=== PATIENT | female | born 1995 | race Caucasian/White ===

== ENCOUNTER → 2018-08-25 15:18 | Outpatient (CLI) | payer OTHER, SELFPAY ==
[2018-08-28 14:19] LABS: HPV Reflexed? NOT INDICATED
== END ==
PROVIDERS: Referring Provider Obstetrics & Gynecology; Visit Provider Obstetrics & Gynecology
DX: Z12.72 Encounter for screening for malignant neoplasm of vagina (principal)
CPT/HCPCS: 88175; G0145

== ENCOUNTER → 2020-03-30 | Outpatient (CLI) | payer OTHER, SELFPAY ==
[2017-03-02 06:48] VITALS: BMI 32.2
[2020-04-07 00:31] LABS: HPV Reflexed? NOT INDICATED
== END | disposition home or self-care (01) ==
PROVIDERS: Referring Provider Obstetrics & Gynecology; Visit Provider Obstetrics & Gynecology
DX: Z12.4 Encounter for screening for malignant neoplasm of cervix (principal)
CPT/HCPCS: 88175; G0145

== ENCOUNTER → 2021-03-26 07:20 | Outpatient (CLI) | payer OTHER, SELFPAY ==
[2021-03-26 10:33] LABS: Hepatitis B Surface Antibody Non-Reactive; Rubella IgG Reactive (Nonreactive)
[2021-03-26 10:49] LABS: ALB/GLOB Ratio 1.2 RATIO (0.9-2.4); AST(SGOT) 14 U/L (15-37); Alanine Aminotransfer ALT/SGPT 22 U/L (13-56); Albumin, Serum 4.3 g/dL (3.2-5.0); Alkaline Phosphatase 94 U/L (45-117); Anion Gap 5 (5-15); BUN 13 mg/dL (7-18); BUN/Creat Ratio 11.2 RATIO (10-20); Calcium,Total 9.5 mg/dL (8.5-10.1); Chloride 104 mmol/L (98-107); Cholesterol 143 mg/dL (200); Creatinine, Serum 1.16 mg/dL (0.55-1.02); EST Glomerular Filtration Rate 59 mL/min (>60); Est Glom Filt Rate - Afr Amer 72 mL/min (>60); Globulin 3.6 g/dL (2.2-4.2); Glucose 79 mg/dL (74-106); High Density Lipoprotein 70 mg/dL; Potassium 4.1 mmol/L (3.5-5.1); Protein, Total 7.9 g/dL (6.4-8.2); Sodium Level 136 mmol/L (136-145); Triglycerides 85 mg/dL; Very Low Density Lipoprotein 17 mg/dL (5-40)
[2021-03-28 12:41] LABS: Mumps Antibody, IgM < 0.80 AU (0.00-0.79); Rubeola IgG Ab > 300.0 AU/mL (Immune >16.4); V-Zoster IgG (Immunity) 2773 index (Immune >165)
== END ==
PROVIDERS: PCP Family Medicine; Referring Provider Family Medicine; Visit Provider Family Medicine
DX: Z00.00 Encounter for general adult medical examination without abnormal findings (principal); E66.3 Overweight
CPT/HCPCS: 36415; 80053; 80061; 86706; 86735; 86762; 86765; 86787

== ENCOUNTER 2023-10-12 12:06 | Emergency (ER) | payer OTHER, SELFPAY ==
[2023-10-12 12:07] VITALS: BP 160/95; PULSE 93; RESP 16; TEMP 36.4; O2SAT 99; BMI 30.9
--- NOTE | 2023-10-12 12:11 | EKG12_ITS ---
Test Reason : PALPATATIONS Blood Pressure : / mmHG Vent. Rate : 092 BPM Atrial Rate : 092 BPM P-R Int : 146 ms QRS Dur : 068 ms QT Int : 346 ms P-R-T Axes : 052 038 045 degrees QTc Int : 427 ms Normal sinus rhythm Normal ECG Confirmed by HARSH VALENCIA, YISSEL ([id number]), primer expeditor and drier COTY REECE ([id number]) on 10/13/2023 12:13:52 PM Referred By: Confirmed By:YISSEL HOUSE MD
[2023-10-12 12:43] LABS: Absolute Lymphocyte Count 1.37 X10^3/uL (0.83-4.51); Absolute Neutrophil Count 3.7 X10^3/uL (2.0-7.7); Basophil# 0.07 X10^3/uL; Basophil% 1.2 % (0-1); Eosinophil# 0.32 X10^3/uL; Eosinophils% 5.6 % (0-5); Hematocrit 44.3 % (37-47); Hemoglobin 14.9 g/dL (12.0-15.0); Lymphocyte # 1.37 X10^3/ul (0.83-4.51); Lymphocyte % 23.8 % (19-41); Mean Corp Hgb Conc 33.6 g/dL (32-36); Mean Corpuscular Hgb 30.3 pg (27.0-32.0); Mean Platelet Vol. 9.2 fl (6.2-12.0); Monocyte# 0.28 X10^3/uL; Monocyte% 4.9 % (0-10); NRBC Flagged by Analyzer 0 % (0-5); Neutrophil % 64.3 % (47-70); Platelet Count 342 K/mm3 (150-450); RBC Distribution Width CV 11.9 % (11.6-14.6); RBC Distribution Width SD 39.2 fl (35.1-43.9); Red Blood Count 4.92 M/mm3 (4.2-5.4); White Blood Count 5.8 K/mm3 (4.4-11.0)
[2023-10-12 12:52] VITALS: BP 145/96; PULSE 84; RESP 14; O2SAT 100; O2SAT 99
[2023-10-12 12:56] LABS: Anion Gap 6 (5-15); BUN 14 mg/dL (7-18); BUN/Creat Ratio 12.3 RATIO (10-20); Calcium,Total 9.4 mg/dL (8.5-10.1); Chloride 105 mmol/L (98-107); Creatinine, Serum 1.14 mg/dL (0.55-1.02); EST Glomerular Filtration Rate 59 mL/min (>60); Est Glom Filt Rate - Afr Amer 72 mL/min (>60); Estimated Creatinine Clearance 67.55 ml/min; Glucose 99 mg/dL (74-106); Potassium 3.9 mmol/L (3.5-5.1); Sodium Level 140 mmol/L (136-145); Troponin-I HS (w/2H Reflex) 4 pg/mL (3.0-54.0)
--- NOTE | 2023-10-12 13:00 | RAD_ITS ---
HISTORY: chest pain. TECHNIQUE: XR Chest 1 View. COMPARISON: None. FINDINGS: CARDIOMEDIASTINAL BORDERS: Cardiac silhouette within normal limits in size. Mediastinal contour unremarkable. LUNGS: Radiographically clear. PLEURA: No pleural effusion or pneumothorax seen. OSSEOUS STRUCTURES: Unremarkable. RAD/Chest 1 View (Portable) IMPRESSION: No acute cardiopulmonary process identified. Electronically Signed: Rhina Daily MD at 13:21 EST ,
--- NOTE | 2023-10-12 13:00 | NURSING ---
KRISTINA PEACOCK EKGS
--- NOTE | 2023-10-12 13:04 | ED.VIS.CHEST ---
HPI History of Present Illness Chief Complaint: Palpitations Narrative Narrative: 28-year-old female present with chest pain. She describes it as right upper chest wall burning. Its not sharp or pleuritic. Does not hurt worse with deep inspiration. States he had COVID last month. She was not bedbound and was able to get up and ambulate. States he had a fever of 3 Fahrenheit during that time. Patient is on control and she notes that she has been tachycardic intermittently over the last few days. She states that this is associated with a burning chest wall pain. 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 She states she does not usually drink energy drinks. She states she was sitting the other night and had 1 episode of tachycardia at 145 bpm. She is concerned she might have developed PEs. No history of cardiac abnormalities. [facility] Medical History Earache, right URI (upper respiratory infection) Home Medications levonorgestrel 21 mcg/24 hours (8 yrs) 52 mg intrauterine device (Mirena) 1 insert intrauterine ONCE 09/27/21 [History Last Taken Unknown] Allergy/AdvReac Type Severity Reaction Status Date / Time No Known Allergies Allergy Verified 10/12/23 12:09 Surgical History History of eye surgery Social History household members: spouse and children number of children: 1 current occupational status: employed current occupation: [employer] sexually active: Yes Smoking Status: Never smoker alcohol intake: never substance use type: does not use what type of physical activity do you participate in: weight training frequency: 5-6 times per week seatbelt use: always do you feel safe at home: Yes additional social history: mardenys - [employer] ROS ROS ED Constitutional Constitutional ED: Denies chills or fever(s) Eyes Eyes: Denies blurry vision or change in vision ENT ENT ED: Denies rhinorrhea or sore throat Cardiovascular Cardiovascular: Reports as per HPI, palpitations and racing heartbeat Respiratory/Chest Respiratory/Chest: Reports cough; Denies dyspnea Gastrointestinal Gastrointestinal: Denies abdominal pain, nausea or vomiting Genitourinary Genitourinary ED: Denies dysuria or hematuria Musculoskeletal Musculoskeletal: Denies arthralgias Integumentary Denies abscess or Abrasions Neurologic Neurologic: Denies headache(s) Psychiatric Psychiatric: Denies anxiety or depression EXAM Physical Exam Const Vital Signs: 10/12/23 12:07 10/12/23 12:52 10/12/23 12:52 Temperature 97.5 F L Temperature Source Temporal Pulse Rate 93 84 Respiratory Rate 16 14 Respiratory Effort Blood Pressure 160/95 H 145/96 H Blood Pressure Mean 116 112 Pulse Ox 99 100 99 Oxygen Delivery Method Room Air Room Air Room Air 10/12/23 12:54 10/12/23 13:52 Temperature Temperature Source Pulse Rate 88 Respiratory Rate 18 Respiratory Effort Normal Non-Labored Blood Pressure 135/74 H Blood Pressure Mean 94 Pulse Ox 97 Oxygen Delivery Method Positive well nourished General Appearance ED: NAD HEENT Reports moist mucous membranes normocephalic Eyes PERRL and EOMs intact bilaterally Resp normal respiratory effort and clear to auscultation bilaterally Auscultation: Negative for rales, rhonchi or wheezes Cardio regular rate and regular rhythm GI normal to inspection, nondistended, normoactive bowel sounds Extremity normal to inspection Neuro oriented x3 and CN's II-XII intact bilaterally Sensorium / Orientation: alert Psych mental status grossly normal Skin no rashes or lesions noted MDM MDM MDM Narrative Medical decision making narrative: Patient presenting with chest wall pain. She is concerned she might have blood clots. Risk factors include recent COVID-19 infection and oral control. Differential includes PE, pneumonia, dehydration, anemia, electrolyte abnormalities, increased caffeine intake. CBC will be obtained to assess white blood cell count, hemoglobin, platelets. BMP to assess renal function and electrolytes. High-sensitivity troponin EKG to assess for ischemia/dysrhythmia. D-dimer to assess for PE. Chest x-ray will be obtained. CBC, BMP unremarkable. Coagulation studies normal. D-dimer negative. High-sensitivity troponin is 4. EKG on my interpretation shows a sinus rhythm with a ventricular rate of 92 bpm without sign of ischemic change or ectopy on my interpretation. Chest x-ray shows no acute process. On my interpretation. Radiologist interprets this and agrees. At this point the patient has a negative work-up and I feel she can safely be discharged home. Patient amenable to this plan. Impression: 1. Chest pain Lab Data Labs: Laboratory Results - last 24 hr 10/12/23 12:30 WBC 5.8 RBC 4.92 Hgb 14.9 Hct 44.3 MCV 90.0 MCH 30.3 MCHC 33.6 RDW Std Deviation 39.2 RDW Coeff of Brandon 11.9 Plt Count 342 MPV 9.2 Immature Gran % (Auto) 0.200 Neut % (Auto) 64.3 Lymph % (Auto) 23.8 Tillman % (Auto) 4.9 Eos % (Auto) 5.6 H Baso % (Auto) 1.2 H Absolute Neuts (auto) 3.7 Absolute Lymphs (auto) 1.37 Nucleated RBC % 0 PT 13.0 INR 1.0 D-Dimer Quant (PE/DVT) < 0.27 L Sodium 140 Potassium 3.9 Chloride 105 Carbon Dioxide 29.0 Anion Gap 6 BUN 14 Creatinine 1.14 H Estim Creat Clear Calc 67.55 Est GFR (MDRD) Af Amer 72 Est GFR (MDRD) Non-Af 59 L BUN/Creatinine Ratio 12.3 Glucose 99 Calcium 9.4 Troponin I High Sens 4 Radiography Diagnostic Testing: Clinical Impression(s) from Imaging Studies Chest X-Ray 10/12/23 13:00 IMPRESSION: No acute cardiopulmonary process identified. Electronically Signed: Rhina Daily MD at 13:21 EST Reading Location ID and State: [address] [place] [address] Tel , Service support , Discharge Plan Triage Chief Complaint: Palpitations ED Provider: Michel Regalado Dx/Rx/DC Orders Instructions: ED Chest Pain, Noncardiac, ED Palpitations Prescriptions: No Action Mirena 20 mcg/24 hours (7 yrs) 52 mg intrauterine device 1 insert intrauterine ONCE Rx Instructions: as a single dose Primary Care Provider: Care Physician,No Primary Referrals: Care Physician,No Primary [Primary Care Provider] - Disposition Disposition: Home, Self Care
[2023-10-12 13:05] LABS: D-Dimer Quantitative (DVT/PE) < 0.27 FEU/ug/m (0.27-0.49)
[2023-10-12 13:52] VITALS: BP 135/74; PULSE 88; RESP 18; O2SAT 97
[2023-10-12 14:34] LABS: Reflex Troponin-HS? (from REC) Y
== END 2023-10-12 14:12 | disposition home or self-care (01) ==
PROVIDERS: Emergency Provider Student in an Organized Health Care Education/Training Program; Visit Provider Student in an Organized Health Care Education/Training Program
DX: R07.9 Chest pain, unspecified (principal); Z86.16 Personal history of COVID-19
CPT/HCPCS: 71045; 80048; 84484; 85025; 85379; 85610; 93005; 99284; A4216

== ENCOUNTER → 2024-02-11 | Outpatient (CLI) | payer OTHER, SELFPAY ==
[2024-02-17 19:07] LABS: HPV APTIMA, High Risk Negative (Negative)
== END | disposition home or self-care (01) ==
LOC: LABSPEC 16:11
PROVIDERS: Referring Provider Nurse Practitioner Women's Health; Visit Provider Nurse Practitioner Women's Health
DX: Z12.4 Encounter for screening for malignant neoplasm of cervix (principal)
CPT/HCPCS: 87624; 88175; G0145

== ENCOUNTER → 2025-02-02 | Outpatient (CLI) | payer OTHER, SELFPAY ==
[2025-02-02 12:24] LABS: Absolute Lymphocyte Count 1.62 X10^3/uL (0.83-4.51); Absolute Neutrophil Count 4.5 X10^3/uL (2.0-7.7); Basophil# 0.06 X10^3/uL; Basophil% 0.9 % (0-1); Eosinophil# 0.22 X10^3/uL; Eosinophils% 3.3 % (0-5); Hematocrit 42.1 % (37-47); Hemoglobin 14.3 g/dL (12.0-15.0); Lymphocyte # 1.62 X10^3/ul (0.83-4.51); Lymphocyte % 24.1 % (19-41); Mean Corpuscular Volume 88.4 fL (81-99); Mean Platelet Vol. 9.7 fl (6.2-12.0); Monocyte# 0.31 X10^3/uL; Monocyte% 4.6 % (0-10); NRBC Flagged by Analyzer 0 % (0-5); Neutrophil # 4.49 X10^3/uL (2.7-7.7); Platelet Count 372 K/mm3 (150-450); RBC Distribution Width CV 11.8 % (11.6-14.6); RBC Distribution Width SD 37.5 fl (35.1-43.9); Red Blood Count 4.76 M/mm3 (4.2-5.4); White Blood Count 6.7 K/mm3 (4.4-11.0)
[2025-02-02 13:01] LABS: ALB/GLOB Ratio 1.5 RATIO (0.9-2.4); AST(SGOT) 22 U/L (<=31); Alanine Aminotransfer ALT/SGPT 29 U/L (<=34); Albumin, Serum 4.6 g/dL (3.5-5.0); Alkaline Phosphatase 113 U/L (35-104); Anion Gap 12 (5-15); BUN 19 mg/dL (4-19); BUN/Creat Ratio 19.4 RATIO (10-20); Calcium,Total 9.7 mg/dL (7.6-11.0); Carbon Dioxide 23.3 mmol/L (21.0-32.0); Chloride 104 mmol/L (98-108); Cholesterol 144 mg/dL (<=200); Creatinine, Serum 0.97 mg/dL (0.70-1.20); EST Glomerular Filtration Rate 80 (>60); Globulin 3.2 g/dL (2.2-4.2); Glucose 86 mg/dL (70-99); High Density Lipoprotein 47 mg/dL; Low Density Lipoprotein Calc. 79 mg/dL; Potassium 4.7 mmol/L (3.3-5.1); Protein, Total 7.8 g/dL (5.9-8.4); Sodium Level 139 mmol/L (133-145); Triglycerides 90 mg/dL; Very Low Density Lipoprotein 18 mg/dL (5-40); cholesterol:hdl ratio screen 3.06
== END | disposition home or self-care (01) ==
LOC: BIMLAB 08:43
PROVIDERS: PCP Internal Medicine; Referring Provider Internal Medicine; Visit Provider Internal Medicine
DX: Z00.00 Encounter for general adult medical examination without abnormal findings (principal); E04.9 Nontoxic goiter, unspecified
CPT/HCPCS: 36415; 80053; 80061; 84443; 85025